=== PATIENT | female | born 1995 | race Two or more races ===

== ENCOUNTER 2018-07-02 22:19 | Emergency (ER) | payer MEDICAID ==
[~2018-07-02] VITALS: Ht 152.4 cm; Wt 43.0 kg
[2018-07-02 22:25] VITALS: BP 133/78
[2018-07-02] MEDS ORDERED: HYDROcodone/APAP 5/325 TABLET ONE (22:47)
[2018-07-02] MEDS ORDERED: HYDROcodone/APAP 5/325 TABLET PO ONE (23:00)
== END 2018-07-02 23:01 ==
LOC: ED 22:45
DX: K02.9 Dental caries, unspecified (principal); K04.7 Periapical abscess without sinus
CPT/HCPCS: 99283

== ENCOUNTER 2018-07-11 07:31 | Emergency (ER) | payer MEDICAID ==
[~2018-07-11] VITALS: Ht 152.4 cm; Wt 41.9 kg
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
--- NOTE | 2018-07-11 07:45 | NUR ---
seen by POLLY NICOLAS at BS
[2018-07-11 08:29] LABS: CULTURE INDICATED? YES; HCG UR SG 1.031 (1.003-1.030); MICROSCOPIC AUTO
--- NOTE | 2018-07-11 09:05 | NUR ---
pt upright on gurney awake & comfortable, responds approp to staff, NAD, comfort measures provided, visitors at BS, call light within reach.
[2018-07-11 10:00] VITALS: BP 116/50
--- NOTE | 2018-07-11 10:01 | NUR ---
Patient given discharge instructions and Rx, they have confirmed that they understand the instructions. Patient ambulatory with steady gait.
== END 2018-07-11 10:15 | disposition home or self-care (01) ==
LOC: ED 07:47
DX: O9A.211 Injury, poisoning and certain other consequences of external causes complicating pregnancy, first trimester (principal); O23.41 Unspecified infection of urinary tract in pregnancy, first trimester; S83.422A Sprain of lateral collateral ligament of left knee, initial encounter; S83.412A Sprain of medial collateral ligament of left knee, initial encounter; S05.12XA Contusion of eyeball and orbital tissues, left eye, initial encounter; S05.11XA Contusion of eyeball and orbital tissues, right eye, initial encounter; Z3A.01 Less than 8 weeks gestation of pregnancy; Y04.0XXA Assault by unarmed brawl or fight, initial encounter; Y93.89 Activity, other specified; Y99.8 Other external cause status; Y92.009 Unspecified place in unspecified non-institutional (private) residence as the place of occurrence of the external cause
CPT/HCPCS: 81001; 81025; 87077; 87086; 87186; 99284

== ENCOUNTER 2020-07-19 13:43 | Emergency (ER) | payer MEDICAID ==
[~2020-07-19] VITALS: Ht 152.4 cm; Wt 47.2 kg
[2020-07-19 14:05] VITALS: BP 100/73
[2020-07-19] MEDS ORDERED: LIDOCAINE-MPF 1%, 5ML ONE (14:29)
--- NOTE | 2020-07-19 15:27 | NUR ---
Patient/Caregiver given discharge instructions and they have confirmed that they understand the instructions. Patient ambulatory with steady gait.
== END 2020-07-19 15:31 | disposition home or self-care (01) ==
LOC: ED 15:20
DX: K04.7 Periapical abscess without sinus (principal); K02.9 Dental caries, unspecified; K08.89 Other specified disorders of teeth and supporting structures
CPT/HCPCS: 99283

== ENCOUNTER 2020-08-22 16:02 | Emergency (ER) | payer BC, MEDICAID ==
[~2020-08-22] VITALS: Ht 152.4 cm; Wt 49.2 kg
--- NOTE | 2020-08-22 18:09 | NUR ---
PT TO ROOM FROM LOBBY, GAIT STEADY
[2020-08-22] MEDS ORDERED: PREN1TAB62 PO (18:24)
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
--- NOTE | 2020-08-22 19:06 | NUR ---
REPORT FROM BEN HENRY. PT RESTING. WAITING FOR MD TO ASSESS PT. CALL LIGHT IN REACH
--- NOTE | 2020-08-22 20:04 | NUR ---
UA TO LAB. PT RESTING WITH NO NEEDS AT THIS TIME. CALL LIGHT IN REACH
[2020-08-22 20:14] LABS: HCG UR SG 1.014 (1.003-1.030)
--- NOTE | 2020-08-22 21:01 | NUR ---
PT RESTING. VSS. PT HAS NO NEEDS AT THIS TIME. CALL LIGHT IN REACH
--- NOTE | 2020-08-22 21:29 | NUR ---
PT REQUESTED WATER. OK PER MD. SUN TO REEVALUATE PT. CALL LIGHT IN REACH
--- NOTE | 2020-08-22 21:48 | NUR ---
Patient given discharge instructions and they have confirmed that they understand the instructions. Patient ambulatory with steady gait.
[2020-08-22 21:49] VITALS: BP 99/67
== END 2020-08-22 22:08 | disposition home or self-care (01) ==
LOC: ED 19:06
DX: O26.891 Other specified pregnancy related conditions, first trimester (principal); R10.9 Unspecified abdominal pain; Z3A.01 Less than 8 weeks gestation of pregnancy
CPT/HCPCS: 36415; 76801; 81025; 84702; 99284

== ENCOUNTER 2021-02-03 01:29 | Outpatient (CLI) | payer BC, MEDICAID ==
[~2021-02-03 01:29] MED LIST: PREN1TAB62 PO
[2021-02-03 01:59] LABS: MICROSCOPIC INDICATED
[2021-02-03 02:21] VITALS: BP 104/65
[2021-02-03] MEDS ORDERED: TERBUTALINE 1 MG/ML, 1ML SQ ONE (02:50)
[2021-02-03] MEDS ORDERED: TERBUTALINE 1 MG/ML, 1ML ONE (02:51)
[2021-02-03 03:07] LABS: AMPHETAMINE SCREEN, URINE Negative (Negative); BARBITURATE SCREEN, URINE Negative (Negative); BENZODIAZEPINE SCREEN, URINE Negative (Negative); CANNABINOID SCREEN, URINE Negative (Negative); COCAINE SCREEN, URINE Negative (Negative); METHADONE SCREEN, URINE Negative (Negative); OPIATE SCREEN, URINE Negative (Negative)
== END 2021-02-03 06:50 | disposition home or self-care (01) ==
LOC: LDOP 01:29
PROVIDERS: ATTEND Obstetrics & Gynecology
DX: O62.9 Abnormality of forces of labor, unspecified (principal); O26.893 Other specified pregnancy related conditions, third trimester; R10.9 Unspecified abdominal pain; Z3A.31 31 weeks gestation of pregnancy
CPT/HCPCS: 59025; 80307; 81001; 87086; 87147; 96372; J3105

== ENCOUNTER 2021-03-05 15:16 | Outpatient (CLI) | payer BC, MEDICAID ==
[~2021-03-05] VITALS: Ht 152.4 cm; Wt 55.9 kg
[2021-03-05 15:23] VITALS: BP 106/64
== END 2021-03-05 16:45 | disposition home or self-care (01) ==
LOC: LDOP 15:16
PROVIDERS: ATTEND Obstetrics & Gynecology
DX: O26.893 Other specified pregnancy related conditions, third trimester (principal); R10.9 Unspecified abdominal pain; Z3A.36 36 weeks gestation of pregnancy
CPT/HCPCS: 59025; 96372

== ENCOUNTER 2021-03-06 04:15 | Outpatient (CLI) | payer BC, MEDICAID ==
[~2021-03-06] VITALS: Ht 152.4 cm; Wt 55.9 kg
[2021-03-06 05:54] LABS: MICROSCOPIC AUTO
[2021-03-06] MEDS ORDERED: morphine SULFATE 10 MG/ML, 1ML IM ONE (06:00)
== END 2021-03-06 06:28 | disposition home or self-care (01) ==
LOC: LDOP 04:15
PROVIDERS: ATTEND Obstetrics & Gynecology
DX: O62.9 Abnormality of forces of labor, unspecified (principal); O26.893 Other specified pregnancy related conditions, third trimester; R10.9 Unspecified abdominal pain; Z3A.36 36 weeks gestation of pregnancy
CPT/HCPCS: 59025; 81001; 87086; 96372; J2270